=== PATIENT | female | born 1975 | race African-American/Black ===

== ENCOUNTER 2023-07-02 08:33 | Emergency (ER) | payer OTHER ==
[~2023-07-02] VITALS: Ht 180.3 cm; Wt 113.0 kg
[2023-07-02 08:40] VITALS: O2SAT 98
[2023-07-02] MEDS: ONDANSETRON 4MG ODT PO NR (09:43)
[2023-07-02 09:57] LABS: BASOPHILS % 1.2 % (0.0-2.0); EOSINOPHILS % 4.2 % (0.0-5.0); HEMATOCRIT. 39.7 % (36.0-48.0); HEMOGLOBIN. 13.3 g/dL (12.0-16.0); LYMPHOCYTES % 32.2 % (20.0-50.0); MEAN CORPUSCULAR HEMOGLOBIN 30.5 pg (28.0-32.0); MEAN CORPUSCULAR HGB CONC 33.5 g/dL (31.0-37.0); MEAN CORPUSCULAR VOLUME 90.8 fL (81.0-99.0); MEAN PLATELET VOLUME 8.8 fl (7.4-10.4); MONOCYTES % 6.1 % (2.0-8.0); NEUTROPHILS % 56.3 % (40.0-76.0); PLATELET 258 x1000/uL (130-400); RED BLOOD CELL COUNT 4.37 mill/uL (4.2-5.4); RED CELL DISTRIBUTION WIDTH 12.8 % (11.6-14.6); WHITE BLOOD COUNT 4.1 x1000/uL (4.5-11.0)
[2023-07-02 10:04] LABS: HCG SCREEN NEGATIVE
[2023-07-02 10:06] LABS: ALANINE AMINOTRANSFERASE 11 IU/L (10-49); ALBUMIN 4.1 g/dL (3.2-4.8); ASPARTATE AMINOTRANSFERASE 20 IU/L (<34); BILIRUBIN TOTAL 0.7 mg/dL (0.1-1.0); CALCIUM 8.6 mg/dL (8.7-10.4); CARBON DIOXIDE 26 mEq/L (21-32); CHLORIDE 103 mEq/L (98-107); CREATININE 0.8 mg/dL (0.6-1.0); GLUCOSE 104 mg/dL (70-105); POTASSIUM 4.2 mEq/L (3.5-5.1); PROTEIN TOTAL 7.8 g/dL (6.0-8.3); SODIUM 133 mEq/L (136-145); UREA NITROGEN BLOOD 8 mg/dL (9-23)
[2023-07-02 10:10] LABS: TROPONIN I HIGH SENSITIVITY < 4 ng/L (3.0-34)
[2023-07-02 12:01] VITALS: BP 118/79; PULSE 62; RESP 16; TEMP 98.3
== END 2023-07-02 12:02 | disposition home or self-care (01) ==
LOC: ER 08:33
DX: B34.9 Viral infection, unspecified (principal); I49.9 Cardiac arrhythmia, unspecified
CPT/HCPCS: 99285; 74176; 71045; 80053; 81025; 84703; 83690; 85025; 84484; 36415; 93005; Q0162